=== PATIENT | male | born 1960 | race Caucasian/White ===

== ENCOUNTER → 2017-01-13 | Outpatient (CLI) | payer OTHER ==
--- NOTE | 2017-01-13 10:51 | DIAGNOSTIC IMAGING REPORT ---
CHEST 2 VIEWS ROUTINE CLINICAL HISTORY: Encounter for pre-employment health screening examination COMPARISON STUDY: 01/18/2014 FINDINGS: The cardiac and mediastinal contours are normal. There is no evidence of focal pulmonary consolidation. There is no evidence of failure. No pleural effusions are visualized.[ IMPRESSION: No active disease in the chest. Electronically signed by: Jeffrey Smith M.D. 01/13/2017 10:49 AM Dictated Date/Time: 01/13/2017 10:49 AM
[2017-01-13 13:23] LABS: BASO % 0.5 %; BASO ABS # 0.03 K/uL (0-0.2); COMPLETE YES; EOS % 2.6 %; HEMATOCRIT 43.7 % (42-52); IG% 0.2 %; LYMPH % 25.5 %; MEAN CELL VOLUME 83.2 fL (80-100); MEAN CORPUSCULAR HEMOGLOBIN 28.2 pg (25-34); MEAN CORPUSCULAR HGB CONC 33.9 g/dl (32-36); MEAN PLATELET VOLUME 11.9 fL (7.4-10.4); MONO % 12.4 %; NEUT % 58.8 %; PLATELET COUNT 235 K/uL (130-400); RED BLOOD COUNT 5.25 M/uL (4.7-6.1); WHITE BLOOD COUNT 5.88 K/uL (4.8-10.8)
[2017-01-13 13:51] LABS: URINE APPEARANCE CLEAR (CLEAR); URINE BILIRUBIN NEG (NEG); URINE COLOR YELLOW; URINE NITRITE NEG (NEG); URINE PH 6.5 (4.5-7.5); URINE SPECIFIC GRAVITY 1.004 (1.000-1.030); UROBILINOGEN NEG (NEG); ZZUR CULT IF INDIC CLEAN CATCH NO
[2017-01-13 13:51] LABS: ALT/SGPT 40 U/L (12-78); AST/SGOT 18 U/L (15-37); BLOOD UREA NITROGEN 14 mg/dl (7-18); BUN/CREATININE RATIO 14.6 (10-20); CALCIUM 9.6 mg/dl (8.5-10.1); CARBON DIOXIDE 27 mmol/L (21-32); CHLORIDE 104 mmol/L (98-107); CHOLESTEROL 209 mg/dl (0-200); CREATININE 0.95 mg/dl (0.60-1.40); GLUCOSE 94 mg/dl (70-99); POTASSIUM 4.4 mmol/L (3.5-5.1); SODIUM 137 mmol/L (136-145); TRIGLYCERIDES 96 mg/dl (0-150); VERY LOW DENSITY LIPOPROT CALC 19 mg/dl
[2017-01-13 14:00] LABS: ALB/GLOB RATIO 1.3 (0.9-2); ALKALINE PHOSPHATASE 60 U/L (45-117); CHOLESTEROL/HDL RATIO 3.9; HDL CHOLESTEROL 53 mg/dl; LDL CHOLESTEROL CALCULATED 137 mg/dl
[2017-01-13 14:04] LABS: MANUAL MICROSCOPIC REQUIRED? NO; REVIEW REQ? NO
== END | disposition home or self-care (01) ==
LOC: C.LABBC 09:49
PROVIDERS: ATTEND Physician Assistant Medical
DX: Z02.1 Encounter for pre-employment examination (principal); E03.9 Hypothyroidism, unspecified; I10 Essential (primary) hypertension; E78.5 Hyperlipidemia, unspecified

== ENCOUNTER → 2018-05-09 | Outpatient (CLI) | payer OTHER ==
[2018-05-09 17:37] LABS: ALBUMIN 4.5 gm/dl (3.4-5.0); ALKALINE PHOSPHATASE 83 U/L (45-117); ALT/SGPT 36 U/L (12-78); AST/SGOT 22 U/L (15-37); BLOOD UREA NITROGEN 13 mg/dl (7-18); CALCIUM 9.6 mg/dl (8.5-10.1); CARBON DIOXIDE 28 mmol/L (21-32); CHOLESTEROL 225 mg/dl (0-200); CREATININE 1.02 mg/dl (0.60-1.40); GLUCOSE 93 mg/dl (70-99); LDL CHOLESTEROL CALCULATED 130 mg/dl; POTASSIUM 4.6 mmol/L (3.5-5.1); SODIUM 136 mmol/L (136-145); TOTAL PROTEIN 8.4 gm/dl (6.4-8.2)
== END | disposition home or self-care (01) ==
LOC: C.LABBC 15:27
PROVIDERS: ATTEND Physician Assistant Medical
DX: Z00.00 Encounter for general adult medical examination without abnormal findings (principal); E03.9 Hypothyroidism, unspecified; I10 Essential (primary) hypertension; E78.5 Hyperlipidemia, unspecified